=== PATIENT | female | born 1950 | race African-American/Black ===

== ENCOUNTER 2017-07-17 09:29 | Emergency (ER) | payer OTHER ==
[2017-07-17 09:38] VITALS: BMI 28.2
[2017-07-17] MEDS ORDERED: SODIUM CHLORIDE 1,000 ML IV STA ×2 (10:35→13:44)
[2017-07-17] MEDS ORDERED: KETOROLAC TROMETHAMINE 30 MG/1 ML VIAL IVPUSH ONE (10:35)
[2017-07-17] MEDS ORDERED: ONDANSETRON 4 MG/2 ML VIAL IVPUSH ONE (10:35)
[2017-07-17] MEDS ORDERED: PANTOPRAZOLE SODIUM 40 MG in SODIUM CHLORIDE 100 ML IVPB ONE (10:35)
--- NOTE | 2017-07-17 10:57 | PDOC ---
History of Present Illness - General Chief Complaint: Pain, Acute Stated Complaint: ABD PAIN (ULCER) Time Seen by Provider: 07/17/17 09:50 History Source: Patient Exam Limitations: No Limitations - History of Present Illness Travel History: No Initial Comments: 07/17/17 10:55 67-year-old female presents to the ED with complaints of nausea vomiting epigastric cramping associated with burning feeling to her belly button for the past few days worsening severity today causing her difficulty tolerating solids. Patient states history of gastric ulcers and stopped taking prevacid a few weeks ago. Patient states also continues to drink alcohol occasionally and smokes a pack of cigarettes daily. Patient states had endoscopy and colonoscopy a few years ago by Dr. Ernst but is otherwise followed by her primary care physician Dr. grajeda who prescribes her prevacid. Patient denies chest pain, shortness of breath, diarrhea, dysuria, edema, or rash. Timing/Duration: reports: getting worse Quality: reports: moderate, burning, cramping Abdominal Pain Onset Location: reports: epigastric Pain Radiation: reports: periumbilical Aggravating Factors: improves with: Eating Alleviating Factors: improves with: None Past History - Travel Traveled outside of the country in the last 30 days: No - Past Medical History Allergies/Adverse Reactions: Allergies Allergy/AdvReac Type Severity Reaction Status Date / Time No Known Allergies Allergy Verified 07/17/17 09:33 Home Medications: Ambulatory Orders Lansoprazole [Prevacid -] 30 mg PO DAILY 01/31/14 Calcium Carbonate/Vitamin D3 [Calcium 500-Vit D3 600 Tablet] 1 each PO DAILY 02/24 Cholecalciferol (Vitamin D3) [Vitamin D3] 5,000 unit PO DAILY 07/17/17 Hydrochlorothiazide [Hctz -] 12.5 mg PO DAILY 07/17/17 Lansoprazole [Prevacid -] 30 mg PO DAILY #30 cap.sr.24h 07/17/17 Nitrofurantoin Monohyd/M-Cryst [Macrobid -] 100 mg PO BID #14 capsule 07/17/17 Pnv No.122/Iron/Folic Acid [ Multi Tablet] 1 each PO DAILY 07/17/17 Vitamin B Complex [B Complex] 1 each PO DAILY 07/17/17 CVA: No COPD: No GI Disorders: Yes ("BLEEDING ULCER") - Immunization History Immunization Up to Date: Yes - Suicide/Smoking/Psychosocial Hx Smoking History: Current every day smoker Number of Cigarettes Smoked Daily: 20 Information on smoking cessation initiated: No Hx Alcohol Use: No Drug/Substance Use Hx: No Substance Use Type: Alcohol Patient Lives Alone: No Lives with/in: spouse/SO Review of Systems - Review of Systems Able to Perform ROS?: No Constitutional: Yes: Weakness HEENTM: No: Symptoms Reported Respiratory: No: Symptoms reported Cardiac (ROS): No: Symptoms Reported ABD/GI: Yes: Symptoms Reported, Nausea, Vomiting, Indigestion, Abdominal cramping : No: Symptoms Reported Musculoskeletal: No: Symptoms Reported Integumentary: No: Symptoms Reported Neurological: No: Symptoms reported Hematologic/Lymphatic: No: Symptoms Reported *Physical Exam - Vital Signs Last Vital Signs Temp Pulse Resp BP Pulse Ox 98.0 F 94 H 16 132/85 100 07/17/17 09:33 07/17/17 09:33 07/17/17 09:33 07/17/17 09:33 07/17/17 09:33 - Physical Exam General Appearance: Yes: Nourished, Appropriately Dressed. No: Apparent Distress HEENT: positive: Pharynx Normal (dry) Neck: positive: Supple Respiratory/Chest: positive: Lungs Clear, Normal Breath Sounds. negative: Respiratory Distress, Accessory Muscle Use Cardiovascular: positive: Regular Rhythm, Regular Rate. negative: Murmur Gastrointestinal/Abdominal: positive: Normal Bowel Sounds, Soft, Tenderness ( epigastric and upper periumbilical. LUQ tenderness) Extremity: positive: Normal Capillary Refill Integumentary: positive: Normal Color, Warm, Moist Neurologic: positive: Motor Strength 5/5 (ambulatory) Heart Score/ECG Review - ECG Intrepretation Rhythm: Regular Rhythm (rate 76. nsr with pac) ED Treatment Course - LABORATORY CBC & Chemistry Diagram: 07/17/17 11:07 07/17/17 11:07 - RADIOLOGY Radiology Studies Ordered: Category Date Time Status CHEST X-RAY PORTABLE* [RAD] Stat Radiology 07/17/17 10:38 Ordered Medical Decision Making - Medical Decision Making 07/17/17 12:08 Patient with history of gastric ulcer and GERD presents with nausea vomiting upper abdominal pain. Patient denies hemoptysis, hematemesis, fever, chills or shortness of breath. Patient on exam had epigastric and upper periumbilical along with left upper quadrant tenderness. Patient ordered for labs including lipase, urine, IV Protonix, Zofran Toradol IV fluids. Patient also ordered for cardiac profile, chest x-ray, and EKG. 07/17/17 13:31 Laboratory Tests 07/17/17 07/17/17 11:07 11:07 WBC 12.6 H RBC 5.91 H Hgb 14.8 Hct 46.4 H MCV 78.5 L Neutrophils % 70.1 Sodium 137 Potassium 4.1 Chloride 100 Carbon Dioxide 28 Anion Gap 9 BUN 14 Creatinine 1.0 D Creat Clearance w eGFR 55.64 Random Glucose 93 Calcium 10.3 H AST 20 ALT 30 Creatine Kinase 137 Troponin I < 0.02 Lipase 621 H Patient states feeling much better with no complaints of nausea vomiting or abdominal pain. Patient ordered for abdominal CT with contrast secondary to elevated lipase. Urinalysis awaiting collection. 07/17/17 13:43 Pt ordered for 2nd bag of IVF *DC/Admit/Observation/Transfer Diagnosis at time of Disposition: Elevated lipase, PUD (peptic ulcer disease) - Discharge Dispostion Disposition: HOME Condition at time of disposition: Improved - Prescriptions Prescriptions: Lansoprazole [Prevacid -] 30 mg PO DAILY #30 cap.sr.24h Nitrofurantoin Monohyd/M-Cryst [Macrobid -] 100 mg PO BID #14 capsule - Referrals Referrals: Rafael Ernst DO [Staff Physician] - Evie Grajeda [Primary Care Provider] - - Patient Instructions Printed Discharge Instructions: Lipase, DI for Pancreatitis, DI for Peptic Ulcer Additional Instructions: Activity as tolerated. Stay hydrated. Advance diet slowly as tolerated, initially with clear liquids for 24 hours then progressing slowly with LAST adding fatty foods. Restart Prevacid as prescribed. A urine test shows evidence of a urine infection: Take Macrobid as prescribed as antibiotic. Continue your medications as previously prescribed by your physician. You should follow up with Dr. Grajeda as soon as possible regarding today's emergency department visit. Also follow up with Dr. Ernst. Return to the emergency department for any new or concerning symptoms, particularly persistent or worsening pain, persistent vomiting or dehydration, bloody vomit or stool, fever/chills. - Post Discharge Activity Forms/Work/School Notes: Back to Work
[2017-07-17] MEDS ORDERED: ONDANSETRON 4 MG/2 ML VIAL ONE (11:00)
[2017-07-17] MEDS ORDERED: KETOROLAC TROMETHAMINE 30 MG/1 ML VIAL ONE (11:00)
[2017-07-17] MEDS ORDERED: PANTOPRAZOLE SODIUM 40 MG/100 ML BAG IVPB ONE (11:00)
[2017-07-17 11:25] LABS: BASOPHIL 0.8 % (0-2.0); EOSINOPHIL 0.2 % (0-4.5); MCH 25.1 pg (25.7-33.7); MCHC 31.9 g/dl (32.0-36.0); MEAN CELL VOLUME 78.5 fl (80-96); MEAN PLT VOLUME 9.2 fl (7.5-11.1); NEUTROPHILS 70.1 % (42.8-82.8); PLATELET COUNT 198 K/MM3 (134-434); WHITE BLOOD COUNT 12.6 K/mm3 (4.0-10.0)
[2017-07-17 11:52] LABS: ALBUMIN 3.8 g/dl (3.4-5.0); ANION GAP 9 (8-16); CALCIUM 10.3 mg/dL (8.5-10.1); CO2 28 mmol/L (21-32); GLUCOSE,RANDOM 93 mg/dL (74-106); SGOT/AST 20 U/L (15-37); SGPT/ALT 30 U/L (12-78)
[2017-07-17 11:56] LABS: ALK PHOS 114 U/L (45-117); BILIRUBIN,TOTAL 0.9 mg/dL (0.2-1.0); CPK 137 IU/L (26-192); TOT PROT 8.1 g/dl (6.4-8.2); TROPONIN I < 0.02 ng/ml (0.00-0.05)
[2017-07-17 14:01] LABS: URINE APPEARANCE SLCLOUDY; URINE BILIRUBIN NEGATIVE (NEGATIVE); URINE BLOOD 2+ (NEGATIVE); URINE COLOR YELLOW; URINE GLUCOSE (UA) NEGATIVE (NEGATIVE); URINE KETONE 1+ (NEGATIVE); URINE LEUK ESTERASE TRACE (NEGATIVE); URINE NITRITE NEGATIVE (NEGATIVE)
[2017-07-17 14:05] LABS: URINE PROTEIN 1+ (NEGATIVE)
[2017-07-17 14:09] LABS: URINE BACTERIA MANY /hpf (NONE SEEN); URINE HYALINE CAST 8 /lpf; URINE MUCUS FEW; URINE RBC 5 /hpf (0-3); URINE WBC 21 /hpf (3-5)
--- NOTE | 2017-07-17 15:10 | EKG ---
Test Reason : Blood Pressure : / mmHG Vent. Rate : 076 BPM Atrial Rate : 076 BPM P-R Int : 144 ms QRS Dur : 068 ms QT Int : 410 ms P-R-T Axes : 044 049 018 degrees QTc Int : 461 ms SINUS RHYTHM WITH PREMATURE ATRIAL COMPLEXES WITH ABERRANT CONDUCTION OTHERWISE NORMAL ECG WHEN COMPARED WITH ECG OF 31-JAN-2014 07:57, ABERRANT CONDUCTION IS NOW PRESENT Confirmed by SHEA BRAVO, COSTA ([id number]) on 07/17/2017 3:09:53 PM Referred By: Confirmed By:COSTA VALDIVIA MD
--- NOTE | 2017-07-17 18:15 | PDOC ---
*Physical Exam - Vital Signs Last Vital Signs Temp Pulse Resp BP Pulse Ox 98.0 F 94 H 16 132/85 100 07/17/17 09:33 07/17/17 09:33 07/17/17 09:33 07/17/17 09:33 07/17/17 09:33 - Physical Exam Comments: 07/17/17 18:10 Vital signs normal, heart rate 80 on my examination No jaundice or pallor Abdomen is soft/nontender/nondistended, no guarding or rebound. ED Treatment Course - LABORATORY CBC & Chemistry Diagram: 07/17/17 11:07 07/17/17 11:07 - ADDITIONAL ORDERS Additional order review: Laboratory Results 07/17/17 07/17/17 11:07 10:59 Sodium 137 Potassium 4.1 Chloride 100 Carbon Dioxide 28 Anion Gap 9 BUN 14 Creatinine 1.0 D Creat Clearance w eGFR 55.64 Random Glucose 93 Calcium 10.3 H Magnesium 2.0 Total Bilirubin 0.9 AST 20 ALT 30 Alkaline Phosphatase 114 Creatine Kinase 137 Troponin I < 0.02 Total Protein 8.1 Albumin 3.8 Lipase 621 H Urine Color Yellow Urine Appearance Slcloudy Urine pH 5.0 Ur Specific [place] 1.017 Urine Protein 1+ H Urine Glucose (UA) Negative Urine Ketones 1+ H Urine Blood 2+ H Urine Nitrite Negative Urine Bilirubin Negative Urine Urobilinogen 2.0 H Urine WBC (Auto) 21 Urine RBC (Auto) 5 Ur Epithelial Cells Rare Urine Bacteria Many Hyaline Casts 8 Urine Mucus Few 07/17/17 11:07 RBC 5.91 H MCV 78.5 L MCHC 31.9 L RDW 15.0 MPV 9.2 Neutrophils % 70.1 Lymphocytes % 20.0 Monocytes % 8.9 Eosinophils % 0.2 D Basophils % 0.8 - Medications Given in the ED: ED Medications Discontinued Medications Generic Name Dose Route Start Last Admin Trade Name Freq PRN Reason Stop Dose Admin Pantoprazole Sodium 40 mg/ 100 mls @ 200 mls/hr 07/17/17 10:35 07/17/17 11:02 Sodium Chloride IVPB 07/17/17 11:04 200 mls/hr ONCE ONE Administration Sodium Chloride 1,000 mls @ 1,000 mls/hr 07/17/17 10:35 07/17/17 11:02 Normal Saline - IV 07/17/17 11:34 1,000 mls/hr ASDIR STA Administration Sodium Chloride 1,000 mls @ 1,000 mls/hr 07/17/17 13:44 07/17/17 13:52 Normal Saline - IV 07/17/17 14:43 1,000 mls/hr ASDIR STA Administration Ketorolac Tromethamine 30 mg 07/17/17 10:35 07/17/17 11:02 Toradol Injection - IVPUSH 07/17/17 10:36 30 mg ONCE ONE Administration Ondansetron HCl 4 mg 07/17/17 10:35 07/17/17 11:02 Zofran Injection IVPUSH 07/17/17 10:36 4 mg ONCE ONE Administration Medical Decision Making - Medical Decision Making 07/17/17 18:11 Patient seen and evaluated with the nurse practitioner. I agree with the overall evaluation, assessment, and management with the following summary of visit: 67-year-old female with history of peptic ulcer disease recently noncompliant with PPI and diet presented with 2-3 days of worsening epigastric discomfort with nonbloody nausea/vomiting, exacerbated this morning so presented for evaluation. Last alcohol intake was 5 days ago, denies excessive NSAID use. Has been off her PPI for several weeks. Lab work noted elevated lipase over 600, white blood cell counts 12.6 with normal differential, no anemia but elevated white blood cells on UA. CAT scan to further evaluate the pancreatitis was within normal limits without evidence of gallstones or cyst or abscess. Patient markedly improved after IV fluids and medications, pain-free and tolerating by mouth with benign abdominal exam. Requesting discharge. Discussed with Dr. grajeda, who knows the patient well, who agrees with discharge plan on PPI and clear diet with prompt follow-up, will refer to Dr. Ernst who has seen the patient in the past. Patient understands strict return criteria. *DC/Admit/Observation/Transfer Diagnosis at time of Disposition: Elevated lipase, PUD (peptic ulcer disease) - Discharge Dispostion Disposition: HOME Condition at time of disposition: Improved - Prescriptions Prescriptions: Lansoprazole [Prevacid -] 30 mg PO DAILY #30 cap.sr.24h Nitrofurantoin Monohyd/M-Cryst [Macrobid -] 100 mg PO BID #14 capsule - Referrals Referrals: Evie Grajeda [Primary Care Provider] - Rafael Ernst DO [Staff Physician] - - Patient Instructions Printed Discharge Instructions: DI for Peptic Ulcer, Lipase, DI for Pancreatitis Additional Instructions: Activity as tolerated. Stay hydrated. Advance diet slowly as tolerated, initially with clear liquids for 24 hours then progressing slowly with LAST adding fatty foods. Restart Prevacid as prescribed. A urine test shows evidence of a urine infection: Take Macrobid as prescribed as antibiotic. Continue your medications as previously prescribed by your physician. You should follow up with Dr. Grajeda as soon as possible regarding today's emergency department visit. Also follow up with Dr. Ernst. Return to the emergency department for any new or concerning symptoms, particularly persistent or worsening pain, persistent vomiting or dehydration, bloody vomit or stool, fever/chills. - Post Discharge Activity
[2017-07-17 18:19] VITALS: BP 117/83; PULSE 84; TEMP 98.7
[2017-07-17 19:42] LABS: URINE LEUK ESTERASE Negative (NEGATIVE)
== END 2017-07-17 18:36 | disposition home or self-care (01) ==
LOC: JER 09:29
PROC: 3E0337Z Introduction of Electrolytic and Water Balance Substance into Peripheral Vein, Percutaneous Approach (ICD-10-PCS; principal; 2017-07-17)
PROC: 3E033GC Introduction of Other Therapeutic Substance into Peripheral Vein, Percutaneous Approach (ICD-10-PCS; 2017-07-17)
PROC: 3E033GC Introduction of Other Therapeutic Substance into Peripheral Vein, Percutaneous Approach (ICD-10-PCS; 2017-07-17)
PROC: 3E0333Z Introduction of Anti-inflammatory into Peripheral Vein, Percutaneous Approach (ICD-10-PCS; 2017-07-17)
DX: K27.9 Peptic ulcer, site unspecified, unspecified as acute or chronic, without hemorrhage or perforation (principal); R74.8 Abnormal levels of other serum enzymes
CPT/HCPCS: 36415; 71010-TC; 74177-TC; 80053; 81003; 81015; 82550; 83690; 83735; 84484; 85025; 93005; 93010; 99283-25

== ENCOUNTER 2022-02-26 09:14 | Inpatient (IN) | payer OTHER ==
[2022-02-26 09:28] VITALS: BMI 19.0
[2022-02-26] MEDS ORDERED: ACETAMINOPHEN 1000 MG/100 ML BAG IVPB ONE (10:53)
[2022-02-26] MEDS ORDERED: PANTOPRAZOLE SODIUM 40 MG VIAL IVPUSH ONE (11:11)
[2022-02-26] MEDS ORDERED: ACETAMINOPHEN INJECTION 100 ML IVPB ONE (11:49)
[2022-02-26] MEDS ORDERED: PANTOPRAZOLE SODIUM 80 MG/200 ML BAG IVPB ONE (11:50)
[2022-02-26 12:53] LABS: BASO % 0.9 % (0-2.0); EOS % 0.1 % (0-4.5); HEMATOCRIT 47.9 % (32.4-45.2); HEMOGLOBIN 15.5 GM/dL (10.7-15.3); LYMPH % 15.3 % (8-40); MCH 24.9 pg (25.7-33.7); MCHC 32.3 g/dl (32.0-36.0); MONO % 6.4 % (3.8-10.2); NEUT % 77.3 % (42.8-82.8); PLATELET COUNT 258 10^3/uL (134-434); RBC 6.23 M/mm3 (3.60-5.2); WHITE BLOOD COUNT 11.6 K/mm3 (4.0-10.0)
[2022-02-26 13:00] LABS: INR 1.06 (0.83-1.09); PROTHROMBIN TIME (PATIENT) 12.2 SEC (9.7-13.0)
[2022-02-26 13:03] LABS: ACTIVATED PTT 32.5 SECONDS (25.2-36.5)
[2022-02-26 13:12] LABS: LACTIC ACID 3.8 mmol/L (0.4-2.0)
[2022-02-26] MEDS ORDERED: LACTATED RINGERS SOLUTION 1000 ML INFUS.BAG IV ONE (13:13)
[2022-02-26 13:30] LABS: CHLORIDE 93 mmol/L (98-107); SODIUM 137 mmol/L (136-145)
[2022-02-26 13:32] LABS: ANION GAP 13 MMOL/L (8-16); BLOOD UREA NITROGEN 20.8 mg/dL (7-18); CALCIUM 11.6 mg/dL (8.5-10.1); CO2 31 mmol/L (21-32); GLUCOSE,RANDOM 116 mg/dL (74-106); LIPASE 338 U/L (73-393); MAGNESIUM 2.2 mg/dL (1.8-2.4)
[2022-02-26 13:33] LABS: ALBUMIN 4.1 g/dl (3.4-5.0)
[2022-02-26 13:35] LABS: CREATININE 1.4 mg/dL (0.55-1.3); SGOT/AST 28 U/L (15-37)
[2022-02-26 13:37] LABS: BILIRUBIN,TOTAL 0.9 mg/dL (0.2-1); TOT PROT 8.4 g/dl (6.4-8.2)
[2022-02-26 13:38] LABS: ALK PHOS 102 U/L (45-117)
[2022-02-26 13:41] LABS: SGPT/ALT 23 U/L (13-61)
[2022-02-26 16:01] LABS: URINE APPEARANCE CLEAR; URINE COLOR YELLOW; URINE GLUCOSE (UA) NEGATIVE (NEGATIVE)
[2022-02-26 16:02] LABS: URINE BILIRUBIN NEGATIVE (NEGATIVE); URINE KETONE 2+ (NEGATIVE); URINE NITRITE NEGATIVE (NEGATIVE); URINE PROTEIN 2+ (NEGATIVE)
[2022-02-26 16:03] LABS: EPI CELLS 20 /uL (0-25.1); HYALINE CASTS 3 /uL (0-3.1); URINE BACTERIA 100 /uL (0-1359); URINE LEUK ESTERASE NEGATIVE (NEGATIVE); URINE RBC 84 /uL (0-23.9); URINE WBC 13 /uL (0-25.8)
[2022-02-26] MEDS ORDERED: morphine CARPU-JECT 4 MG/1 ML DISP.SYRIN IVPUSH ONE (16:34)
[2022-02-26] MEDS ORDERED: MAG HYDROX/AL HYDROX/SIMETH 30 ML UNIT-DOSE CUP PO PRN (18:56)
[2022-02-26] MEDS ORDERED: ACETAMINOPHEN 1000 MG/100 ML BAG IVPB PRN (18:56)
[2022-02-26] MEDS ORDERED: CEFTRIAXONE 1 GM in DEXTROSE 5%-WATER - 50 ML IVPB ONE (19:01)
[2022-02-26] MEDS ORDERED: FAMOTIDINE 20 MG/50 ML IVPB 20 MG/50 ML MG IVPB SCH (20:00)
[2022-02-26] MEDS: SODIUM CHLORIDE 1,000 ML IV SCH (22:17)
[2022-02-27] MEDS ORDERED: amLODIPine BESYLATE 5 MG TABLET (FP) PO ONE (01:17)
[2022-02-27] MEDS ORDERED: amLODIPine BESYLATE 5 MG TABLET (FP) ONE (02:09)
[2022-02-27] MEDS ORDERED: HEPARIN NA (PORCINE) 5,000 UNITS/ML 1ML VIAL ONE ×2 (05:59→18:14)
[2022-02-27] MEDS: HEPARIN NA (PORCINE) 5,000 UNITS/ML 1ML VIAL SQ SCH ×3 (06:14→22:20)
[2022-02-27] MEDS ORDERED: LABETALOL HCL 5 MG/1 ML (100MG/20 ML VIAL) IVPUSH ONE (06:57)
[2022-02-27 07:19] LABS: BLOOD UREA NITROGEN 18.5 mg/dL (7-18); MAGNESIUM 2.1 mg/dL (1.8-2.4)
[2022-02-27 07:22] LABS: CREATININE 1.1 mg/dL (0.55-1.3)
[2022-02-27 07:24] LABS: BILIRUBIN,TOTAL 0.6 mg/dL (0.2-1)
[2022-02-27 07:38] LABS: CALCIUM 9.8 mg/dL (8.5-10.1); TOT PROT 6.2 g/dl (6.4-8.2)
[2022-02-27 07:44] LABS: BASO % 1.1 % (0-2.0); EOS % 0.9 % (0-4.5); HEMATOCRIT 36.6 % (32.4-45.2); HEMOGLOBIN 12.1 GM/dL (10.7-15.3); LYMPH % 30.9 % (8-40); MCH 25.4 pg (25.7-33.7); MEAN CELL VOLUME 77.1 fl (80-96); MEAN PLT VOLUME 10.8 fl (7.5-11.1); MONO % 6.6 % (3.8-10.2); NEUT % 60.5 % (42.8-82.8); PLATELET COUNT 149 10^3/uL (134-434); RBC 4.75 M/mm3 (3.60-5.2); RDW 14.4 % (11.6-15.6); WHITE BLOOD COUNT 9.1 K/mm3 (4.0-10.0)
[2022-02-27] MEDS ORDERED: FAMOTIDINE 20 MG/50 ML IVPB 20 MG/50 ML MG IVPB SCH (10:00)
[2022-02-27] MEDS ORDERED: FAMOTIDINE 20 MG/50 ML IVPB 20 MG/50 ML MG IVPB ONE (11:31)
[2022-02-27] MEDS ORDERED: PIPERACILLIN/TAZOB 3.375 GM 3.375 GM in DEXTROSE 5%-WATER - 50 ML IVPB SCH (18:00)
[2022-02-27] MEDS: SODIUM CHLORIDE 1,000 ML IV SCH (22:27)
[2022-02-28] MEDS: HEPARIN NA (PORCINE) 5,000 UNITS/ML 1ML VIAL SQ SCH ×3 (06:55→22:37)
[2022-02-28 07:04] LABS: BASO % 0.7 % (0-2.0); EOS % 3.8 % (0-4.5); HEMATOCRIT 34.3 % (32.4-45.2); LYMPH % 46.8 % (8-40); MCH 25.2 pg (25.7-33.7); MCHC 32.1 g/dl (32.0-36.0); MEAN CELL VOLUME 78.4 fl (80-96); MEAN PLT VOLUME 9.8 fl (7.5-11.1); MONO % 9.5 % (3.8-10.2); NEUT % 39.2 % (42.8-82.8); PLATELET COUNT 148 10^3/uL (134-434); RBC 4.37 M/mm3 (3.60-5.2); WHITE BLOOD COUNT 6.7 K/mm3 (4.0-10.0)
[2022-02-28 07:37] LABS: CALCIUM 9.2 mg/dL (8.5-10.1)
[2022-02-28 07:38] LABS: BLOOD UREA NITROGEN 12.3 mg/dL (7-18); MAGNESIUM 2.3 mg/dL (1.8-2.4)
[2022-02-28 07:40] LABS: PHOSPHOROUS 3.2 mg/dL (2.5-4.9)
[2022-02-28] MEDS: PANTOPRAZOLE 20 MG TABLET PO SCH (09:48)
[2022-02-28] MEDS: LISINOPRIL 5 MG TABLET PO SCH (09:48)
[2022-02-28] MEDS ORDERED: BISACODYL 5 MG TABLET.DR (FP) PO ONE (16:00)
[2022-02-28] MEDS ORDERED: PEG 3350/NA SULF BICARB CL/KCL 4000 ML SOLN.RECON PO ONE (17:00)
[2022-02-28] MEDS ORDERED: PIPERACILLIN/TAZOB 3.375 GM 3.375 GM in DEXTROSE 5%-WATER - 50 ML IVPB SCH (18:00)
[2022-02-28 18:07] LABS: FREE KAPPA,SERUM 30.1 mg/L (3.3-19.4)
[2022-02-28] MEDS: SODIUM CHLORIDE 1,000 ML IV SCH (18:44)
[2022-03-01 08:20] LABS: BASO % 0.7 % (0-2.0); EOS % 4.5 % (0-4.5); HEMOGLOBIN 11.9 GM/dL (10.7-15.3); LYMPH % 36.1 % (8-40); MCH 25.2 pg (25.7-33.7); MEAN CELL VOLUME 78.7 fl (80-96); MONO % 9.2 % (3.8-10.2); NEUT % 49.5 % (42.8-82.8); PLATELET COUNT 158 10^3/uL (134-434); RBC 4.71 M/mm3 (3.60-5.2); WHITE BLOOD COUNT 7.3 K/mm3 (4.0-10.0)
[2022-03-01 08:38] LABS: BLOOD UREA NITROGEN 7.2 mg/dL (7-18)
[2022-03-01 08:39] LABS: MAGNESIUM 2.2 mg/dL (1.8-2.4)
[2022-03-01 08:41] LABS: PHOSPHOROUS 2.5 mg/dL (2.5-4.9)
[2022-03-01] MEDS: LISINOPRIL 5 MG TABLET PO SCH (09:22)
[2022-03-01] MEDS: PANTOPRAZOLE 20 MG TABLET PO SCH (09:22)
[2022-03-01] MEDS ORDERED: EPINEPHrine 1:10,000 (P-F SYR) 1 MG/10 ML DISP.SYRIN IM ONE (10:57)
[2022-03-01] MEDS ORDERED: PANTOPRAZOLE 40 MG TABLET PO SCH (12:45)
[2022-03-01] MEDS ORDERED: EPINEPHrine 1:10,000 (P-F SYR) 1 MG/10 ML DISP.SYRIN ONE (13:44)
[2022-03-01 15:08] LABS: FREE KAP CHN UR 97.69 mg/L (1.17-86.46); KAPPA LAMBDA RATIO URIN 4.8 (1.83-14.26); KAPPA/LAMBDA RATIO, UR 11.33 (1.83-14.26)
[2022-03-01 15:18] VITALS: BP 143/78; PULSE 79; RESP 18; TEMP 98.6
[2022-03-01 15:22] LABS: INR 1.1 (0.83-1.09); PROTHROMBIN TIME (PATIENT) 12.7 SEC (9.7-13.0)
[2022-03-01 15:25] LABS: ACTIVATED PTT 32.9 SECONDS (25.2-36.5)
[2022-03-04 15:08] LABS: TOTAL PROTEIN, URINE 109.3 mg/dL (Not Estab.)
== END 2022-03-01 19:44 | disposition home or self-care (01) | DRG 392 ==
LOC: JER 09:14 → INTOOBSV 16:24 → JERBED 16:24 → OBSVTOIN 02-27 10:01 → J4W 02-27 18:24
PROVIDERS: ADMIT Internal Medicine; ATTEND Internal Medicine
PROC: 0DB68ZX Excision of Stomach, Via Natural or Artificial Opening Endoscopic, Diagnostic (ICD-10-PCS; 2022-03-01)
PROC: 3E0G8GC Introduction of Other Therapeutic Substance into Upper GI, Via Natural or Artificial Opening Endoscopic (ICD-10-PCS; 2022-03-01)
PROC: 0DBK8ZX Excision of Ascending Colon, Via Natural or Artificial Opening Endoscopic, Diagnostic (ICD-10-PCS; 2022-03-01)
PROC: 0DBB8ZX Excision of Ileum, Via Natural or Artificial Opening Endoscopic, Diagnostic (ICD-10-PCS; 2022-03-01)
PROC: 0DB98ZX Excision of Duodenum, Via Natural or Artificial Opening Endoscopic, Diagnostic (ICD-10-PCS; principal; 2022-03-01 14:00)
DX: K29.60 Other gastritis without bleeding (principal); Z68.1 Body mass index [BMI] 19.9 or less, adult; N17.9 Acute kidney failure, unspecified; I24.8 Other forms of acute ischemic heart disease; K57.30 Diverticulosis of large intestine without perforation or abscess without bleeding; E83.52 Hypercalcemia; R00.0 Tachycardia, unspecified; R63.4 Abnormal weight loss; R11.2 Nausea with vomiting, unspecified; E86.0 Dehydration; I10 Essential (primary) hypertension; K21.9 Gastro-esophageal reflux disease without esophagitis; D64.9 Anemia, unspecified; D72.829 Elevated white blood cell count, unspecified; K63.5 Polyp of colon; D12.0 Benign neoplasm of cecum; D12.2 Benign neoplasm of ascending colon; K26.9 Duodenal ulcer, unspecified as acute or chronic, without hemorrhage or perforation; Z87.11 Personal history of peptic ulcer disease
CPT/HCPCS: 36415; 71045-TC-FY; 74177-TC; 76705-TC; 80048; 80053; 81003; 82272; 82378; 82570; 82728; 83540; 83550; 83605; 83690; 83735; 83883; 83970; 84100; 84155; 84156; 84157; 84165; 84443; 84484; 85025; 85027; 85045; 85610; 85730; 86850; 86900; 86901; 87040; 87077; 87086; 88305-TC; 93005; 93010; 93306-TC; 97116-GP; 97162-GP; 99285-25; C9803-CS; G0378; J1644; Q9967; U0003; U0005

== ENCOUNTER 2023-03-05 13:55 | Observation (INO) | payer OTHER ==
[2023-03-05] MEDS ORDERED: ONDANSETRON 4 MG/2 ML VIAL IVPUSH ONE ×2 (15:11→18:57)
[2023-03-05] MEDS ORDERED: SODIUM CHLORIDE 0.9% 500 ML INFUS.BAG IV ONE (15:11)
[2023-03-05] MEDS ORDERED: ACETAMINOPHEN 1000 MG/100 ML BAG IVPB ONE (15:11)
[2023-03-05] MEDS ORDERED: ACETAMINOPHEN INJECTION 100 ML IVPB ONE (15:19)
[2023-03-05] MEDS ORDERED: ONDANSETRON 4 MG/2 ML VIAL ONE (15:19)
[2023-03-05 17:22] LABS: BASO % 0.5 % (0-2.0); EOS % 1.6 % (0-4.5); HEMOGLOBIN 11.4 GM/dL (10.7-15.3); LYMPH % 12.6 % (8-40); MCH 27.5 pg (25.7-33.7); MCHC 33.5 g/dl (32.0-36.0); MEAN CELL VOLUME 82.1 fl (80-96); MEAN PLT VOLUME 8.5 fl (7.5-11.1); MONO % 6.3 % (3.8-10.2); PLATELET COUNT 423 10^3/uL (134-434); RBC 4.15 M/mm3 (3.60-5.2); RDW 21.8 % (11.6-15.6); WHITE BLOOD COUNT 12.5 K/mm3 (4.0-10.0)
[2023-03-05 17:30] LABS: INR 1.25 (0.83-1.09); PROTHROMBIN TIME (PATIENT) 14.5 SEC (9.7-13.0)
[2023-03-05 17:39] LABS: ACTIVATED PTT 33.3 SECONDS (25.2-36.5)
[2023-03-05 17:42] LABS: POTASSIUM 3.1 mmol/L (3.5-5.1)
[2023-03-05 17:43] LABS: ALBUMIN 2.9 g/dl (3.4-5.0); BLOOD UREA NITROGEN 11.5 mg/dL (7-18); CALCIUM 10.8 mg/dL (8.5-10.1)
[2023-03-05 17:44] LABS: MAGNESIUM 2.1 mg/dL (1.8-2.4)
[2023-03-05 17:47] LABS: CREATININE 1.2 mg/dL (0.55-1.3)
[2023-03-05 17:49] LABS: BILIRUBIN,TOTAL 0.3 mg/dL (0.2-1); TOT PROT 8.1 g/dl (6.4-8.2)
[2023-03-05 18:13] LABS: ANISOCYTOSIS 2+; MACROCYTOSIS 0; TARGET CELLS 1+
[2023-03-05] MEDS ORDERED: POTASSIUM CHLORIDE ORAL LIQUID 20 MEQ/15 ML PO ONE (18:15)
[2023-03-05] MEDS ORDERED: POTASSIUM CHLORIDE ORAL LIQUID 20 MEQ/15 ML ONE (18:42)
[2023-03-05] MEDS ORDERED: FAMOTIDINE 20 MG/50 ML IVPB 20 MG/50 ML MG IVPB ONE ×2 (21:37→21:44)
[2023-03-05] MEDS ORDERED: KCL 10 MEQ IVPB 10 MEQ/100 ML INFUS.BAG IVPB SCH (21:45)
[2023-03-05] MEDS ORDERED: ONDANSETRON 4 MG/2 ML VIAL IVPUSH PRN (22:00)
[2023-03-05] MEDS ORDERED: ACETAMINOPHEN 325 MG TABLET (FP) PO PRN (22:00)
[2023-03-05] MEDS ORDERED: KCL 10 MEQ IVPB 10 MEQ/100 ML INFUS.BAG IVPB ONE (22:02)
[2023-03-05] MEDS ORDERED: MAG HYDROX/AL HYDROX/SIMETH 30 ML UNIT-DOSE CUP PO PRN (22:04)
[2023-03-05] MEDS ORDERED: ACETAMINOPHEN 1000 MG/100 ML BAG IVPB PRN (22:05)
[2023-03-05 22:17] LABS: URINE APPEARANCE CLEAR; URINE BILIRUBIN NEGATIVE (NEGATIVE); URINE COLOR YELLOW; URINE GLUCOSE (UA) NEGATIVE (NEGATIVE); URINE KETONE 15 mg/dl (NEGATIVE)
[2023-03-05 22:18] LABS: EPI CELLS 178.3 /uL (0-25.1); HYALINE CASTS 3.36 /uL (0-3.1); PH,URINE 7.5 (5.0-8.0); URINE LEUK ESTERASE NEGATIVE (NEGATIVE); URINE NITRITE NEGATIVE (NEGATIVE); URINE PROTEIN 30 (NEGATIVE); URINE RBC 58.7 /uL (0-23.9); URINE UROBILINOGEN 0.2 mg/dL (0.2-1.0); YEAST OCCASIONAL (NEGATIVE)
[2023-03-05 23:48] VITALS: BMI 18.6
[2023-03-06 07:05] LABS: BASO % 0.8 % (0-2.0); EOS % 3.6 % (0-4.5); HEMATOCRIT 30.8 % (32.4-45.2); HEMOGLOBIN 9.8 GM/dL (10.7-15.3); LYMPH % 14.6 % (8-40); MCH 26.7 pg (25.7-33.7); MEAN CELL VOLUME 83.7 fl (80-96); MEAN PLT VOLUME 9.1 fl (7.5-11.1); MONO % 7.1 % (3.8-10.2); NEUT % 73.9 % (42.8-82.8); PLATELET COUNT 365 10^3/uL (134-434); RBC 3.67 M/mm3 (3.60-5.2); RDW 21.2 % (11.6-15.6); WHITE BLOOD COUNT 11.7 K/mm3 (4.0-10.0)
[2023-03-06 07:24] LABS: POTASSIUM 4.3 mmol/L (3.5-5.1)
[2023-03-06 07:30] LABS: BLOOD UREA NITROGEN 8.2 mg/dL (7-18)
[2023-03-06 07:33] LABS: CREATININE 0.9 mg/dL (0.55-1.3)
[2023-03-06 07:35] LABS: CALCIUM 9.7 mg/dL (8.5-10.1)
[2023-03-06] MEDS ORDERED: PANTOPRAZOLE 40 MG TABLET PO SCH (10:00)
[2023-03-06] MEDS ORDERED: LISINOPRIL 10 MG TABLET PO SCH (10:00)
[2023-03-06] MEDS ORDERED: amLODIPine BESYLATE 5 MG TABLET (FP) PO SCH (10:00)
[2023-03-06] MEDS ORDERED: REGADENOSON 0.4 MG/5 ML PRE-FILLED SYRINGE IVPUSH ONE ×2 (13:04→13:15)
[2023-03-06 18:46] VITALS: BP 141/63; PULSE 86; RESP 18; TEMP 98.2
[2023-03-06] MEDS ORDERED: ACETAMINOPHEN 325 MG TABLET (FP) PO PRN (22:00)
[2023-03-06] MEDS ORDERED: ATORVASTATIN CA 40 MG TABLET (FP) PO SCH (22:00)
== END 2023-03-06 19:11 | disposition home or self-care (01) ==
LOC: JER 13:55 → JERBED 21:39 → J4W 23:10
PROVIDERS: ADMIT Internal Medicine; ATTEND Internal Medicine
PROC: 3E033NZ Introduction of Analgesics, Hypnotics, Sedatives into Peripheral Vein, Percutaneous Approach (ICD-10-PCS; principal; 2023-03-05)
PROC: 3E033GC Introduction of Other Therapeutic Substance into Peripheral Vein, Percutaneous Approach (ICD-10-PCS; 2023-03-05)
PROC: 3E0337Z Introduction of Electrolytic and Water Balance Substance into Peripheral Vein, Percutaneous Approach (ICD-10-PCS; 2023-03-05)
DX: R07.89 Other chest pain (principal); K29.00 Acute gastritis without bleeding; K27.9 Peptic ulcer, site unspecified, unspecified as acute or chronic, without hemorrhage or perforation; K29.70 Gastritis, unspecified, without bleeding; I10 Essential (primary) hypertension; E78.5 Hyperlipidemia, unspecified; Z87.891 Personal history of nicotine dependence; R10.9 Unspecified abdominal pain; Z90.49 Acquired absence of other specified parts of digestive tract
CPT/HCPCS: 0241U-QW; 36415; 71045-TC-FY; 71275-TC; 78452-TC; 80048; 80053; 81003; 83690; 83735; 84443; 84484; 85025; 85610; 85730; 86850; 86900; 86901; 87077; 87086; 87186; 93005; 93010; 93017; 93306-TC; 96365; 96367; 96375; 96376; 99285-25; A9502; G0378; J2785; Q9967

== ENCOUNTER 2023-03-09 23:03 | Observation (INO) | payer OTHER ==
[2023-03-09 23:12] VITALS: BMI 18.1
[2023-03-09] MEDS ORDERED: LACTATED RINGERS SOLUTION 1000 ML INFUS.BAG IV ONE ×2 (23:18→23:41)
[2023-03-09 23:48] LABS: BASO % 0.8 % (0-2.0); EOS % 1.9 % (0-4.5); HEMATOCRIT 33.5 % (32.4-45.2); HEMOGLOBIN 11.2 GM/dL (10.7-15.3); LYMPH % 12.9 % (8-40); MCH 27.3 pg (25.7-33.7); MCHC 33.5 g/dl (32.0-36.0); MEAN CELL VOLUME 81.4 fl (80-96); MEAN PLT VOLUME 8.8 fl (7.5-11.1); MONO % 5.5 % (3.8-10.2); NEUT % 78.9 % (42.8-82.8); PLATELET COUNT 507 10^3/uL (134-434); RBC 4.12 M/mm3 (3.60-5.2); RDW 20.9 % (11.6-15.6); WHITE BLOOD COUNT 17.3 K/mm3 (4.0-10.0)
[2023-03-09 23:58] LABS: INR 1.29 (0.83-1.09); PROTHROMBIN TIME (PATIENT) 14.9 SEC (9.7-13.0)
[2023-03-10] LABS: ACTIVATED PTT 32.5 SECONDS (25.2-36.5)
[2023-03-10 00:09] LABS: POTASSIUM 3.6 mmol/L (3.5-5.1)
[2023-03-10 00:11] LABS: CALCIUM 11.1 mg/dL (8.5-10.1)
[2023-03-10 00:12] LABS: ALBUMIN 2.8 g/dl (3.4-5.0); BLOOD UREA NITROGEN 16.5 mg/dL (7-18); MAGNESIUM 2.3 mg/dL (1.8-2.4)
[2023-03-10 00:15] LABS: CREATININE 2.9 mg/dL (0.55-1.3)
[2023-03-10 00:16] LABS: TOT PROT 7.6 g/dl (6.4-8.2)
[2023-03-10 00:17] LABS: BILIRUBIN,TOTAL 0.2 mg/dL (0.2-1)
[2023-03-10] MEDS ORDERED: LIDOCAINE HCL 2% JELLY 6 ML TP ONE (01:01)
[2023-03-10 01:56] LABS: EPI CELLS >36 /uL (0-25.1); HYALINE CASTS 13 /uL (0-3.1); URINE APPEARANCE CLOUDY; URINE BACTERIA 34 /uL (0-1359); URINE BILIRUBIN NEGATIVE (NEGATIVE); URINE COLOR YELLOW; URINE GLUCOSE (UA) NEGATIVE (NEGATIVE); URINE KETONE TRACE (NEGATIVE); URINE LEUK ESTERASE TRACE (NEGATIVE); URINE NITRITE NEGATIVE (NEGATIVE); URINE PROTEIN 2+ (NEGATIVE); URINE UROBILINOGEN 0.2 mg/dL (0.2-1.0); URINE WBC 90 /uL (0-25.8)
[2023-03-10] MEDS ORDERED: LACTATED RINGERS SOLUTION 1,000 ML IV SCH (08:30)
[2023-03-10] MEDS ORDERED: PANTOPRAZOLE SODIUM 40 MG VIAL IVPUSH SCH (10:00)
[2023-03-10] MEDS: LACTATED RINGERS SOLUTION 1,000 ML IV SCH ×2 (10:33→18:01)
[2023-03-10] MEDS ORDERED: ONDANSETRON 4 MG/2 ML VIAL IVPUSH PRN (11:22)
[2023-03-10 12:04] LABS: URINE RBC 33.1 /uL (0-23.9)
[2023-03-10 12:15] LABS: BASO % 0.8 % (0-2.0); EOS % 3.9 % (0-4.5); HEMATOCRIT 29.1 % (32.4-45.2); HEMOGLOBIN 9.8 GM/dL (10.7-15.3); LYMPH % 16.5 % (8-40); MCH 27.3 pg (25.7-33.7); MCHC 33.6 g/dl (32.0-36.0); MEAN CELL VOLUME 81.4 fl (80-96); MONO % 6.6 % (3.8-10.2); NEUT % 72.2 % (42.8-82.8); PLATELET COUNT 365 10^3/uL (134-434); RBC 3.58 M/mm3 (3.60-5.2); RDW 20.8 % (11.6-15.6)
[2023-03-10 12:45] LABS: POTASSIUM 3.8 mmol/L (3.5-5.1)
[2023-03-10 12:49] LABS: CALCIUM 9.9 mg/dL (8.5-10.1)
[2023-03-10 12:50] LABS: BLOOD UREA NITROGEN 13.7 mg/dL (7-18)
[2023-03-10 12:52] LABS: PHOSPHOROUS 2.3 mg/dL (2.5-4.9)
[2023-03-10 12:53] LABS: CREATININE 1.6 mg/dL (0.55-1.3)
[2023-03-10 12:54] LABS: BILIRUBIN,TOTAL 0.4 mg/dL (0.2-1); TOT PROT 5.8 g/dl (6.4-8.2)
[2023-03-10 12:57] LABS: ALBUMIN 2.2 g/dl (3.4-5.0)
[2023-03-10] MEDS ORDERED: HEPARIN NA (PORCINE) 5,000 UNITS/ML 1ML VIAL SQ SCH (22:00)
[2023-03-11] MEDS ORDERED: LACTATED RINGERS SOLUTION 1,000 ML IV SCH ×2 (07:26→09:49)
[2023-03-11 09:00] LABS: BASO % 1.3 % (0-2.0); EOS % 8.8 % (0-4.5); HEMATOCRIT 27.3 % (32.4-45.2); HEMOGLOBIN 9.2 GM/dL (10.7-15.3); LYMPH % 22.9 % (8-40); MCH 27.8 pg (25.7-33.7); MCHC 33.6 g/dl (32.0-36.0); MEAN CELL VOLUME 82.8 fl (80-96); MEAN PLT VOLUME 9.9 fl (7.5-11.1); MONO % 7.5 % (3.8-10.2); NEUT % 59.5 % (42.8-82.8); PLATELET COUNT 320 10^3/uL (134-434); RBC 3.29 M/mm3 (3.60-5.2); RDW 20.2 % (11.6-15.6); WHITE BLOOD COUNT 8.6 K/mm3 (4.0-10.0)
[2023-03-11 09:15] LABS: POTASSIUM 3.7 mmol/L (3.5-5.1)
[2023-03-11 09:20] LABS: ALBUMIN 2.1 g/dl (3.4-5.0); BLOOD UREA NITROGEN 10.6 mg/dL (7-18); CALCIUM 9.3 mg/dL (8.5-10.1); MAGNESIUM 1.8 mg/dL (1.8-2.4)
[2023-03-11 09:23] LABS: PHOSPHOROUS 2.1 mg/dL (2.5-4.9)
[2023-03-11 09:25] LABS: BILIRUBIN,TOTAL 0.3 mg/dL (0.2-1); TOT PROT 5.7 g/dl (6.4-8.2)
[2023-03-11] MEDS: LACTATED RINGERS SOLUTION 1,000 ML IV SCH (10:00)
[2023-03-11] MEDS: PANTOPRAZOLE SODIUM 40 MG VIAL IVPUSH SCH ×2 (10:02→21:39)
[2023-03-11] MEDS ORDERED: SODIUM PHOSPHATE - 30 MM in SODIUM CHLORIDE 500 ML IVPB ONE (11:00)
[2023-03-12] MEDS: LACTATED RINGERS SOLUTION 1,000 ML IV SCH (03:42)
[2023-03-12] MEDS: PANTOPRAZOLE SODIUM 40 MG VIAL IVPUSH SCH ×2 (09:25→21:12)
[2023-03-12 11:18] LABS: HEMOGLOBIN 9.2 GM/dL (10.7-15.3); MCH 27.2 pg (25.7-33.7); MCHC 32.8 g/dl (32.0-36.0); MEAN PLT VOLUME 9.4 fl (7.5-11.1); PLATELET COUNT 314 10^3/uL (134-434); RBC 3.38 M/mm3 (3.60-5.2); RDW 20.5 % (11.6-15.6); WHITE BLOOD COUNT 9.8 K/mm3 (4.0-10.0)
[2023-03-12 11:45] LABS: POTASSIUM 3.8 mmol/L (3.5-5.1)
[2023-03-12 12:16] LABS: MAGNESIUM 1.5 mg/dL (1.8-2.4)
[2023-03-12 12:17] LABS: CALCIUM 9.3 mg/dL (8.5-10.1)
[2023-03-12 12:18] LABS: BLOOD UREA NITROGEN 5.8 mg/dL (7-18)
[2023-03-12 12:20] LABS: PHOSPHOROUS 2.4 mg/dL (2.5-4.9)
[2023-03-12] MEDS ORDERED: MAGNESIUM 2GM/50ML STERILE WATER IVPB IVPB ONE (13:00)
[2023-03-12] MEDS ORDERED: SODIUM PHOSPHATE - 15 MM in SODIUM CHLORIDE 250 ML IVPB ONE (14:00)
[2023-03-13 00:55] LABS: EPI CELLS 16 /uL (0-25.1); HYALINE CASTS 0 /uL (0-3.1); URINE APPEARANCE CLEAR; URINE BACTERIA >9,000 /uL (0-1359); URINE BILIRUBIN NEGATIVE (NEGATIVE); URINE COLOR YELLOW; URINE GLUCOSE (UA) NEGATIVE (NEGATIVE); URINE KETONE NEGATIVE (NEGATIVE); URINE LEUK ESTERASE 2+ (NEGATIVE); URINE NITRITE POSITIVE (NEGATIVE); URINE PROTEIN NEGATIVE (NEGATIVE); URINE RBC 10 /uL (0-23.9); URINE UROBILINOGEN 0.2 mg/dL (0.2-1.0); URINE WBC 275 /uL (0-25.8)
[2023-03-13] MEDS: PANTOPRAZOLE SODIUM 40 MG VIAL IVPUSH SCH (09:37)
[2023-03-13] MEDS ORDERED: PANTOPRAZOLE SODIUM 40 MG VIAL IVPUSH SCH (10:00)
[2023-03-13 10:55] LABS: HEMATOCRIT 29.6 % (32.4-45.2); HEMOGLOBIN 9.3 GM/dL (10.7-15.3); MCH 26.7 pg (25.7-33.7); MCHC 31.5 g/dl (32.0-36.0); MEAN CELL VOLUME 84.8 fl (80-96); MEAN PLT VOLUME 9.4 fl (7.5-11.1); PLATELET COUNT 294 10^3/uL (134-434); RBC 3.49 M/mm3 (3.60-5.2); WHITE BLOOD COUNT 9.3 K/mm3 (4.0-10.0)
[2023-03-13 11:11] VITALS: RESP 16
[2023-03-13 11:16] LABS: POTASSIUM 4.1 mmol/L (3.5-5.1)
[2023-03-13 11:18] LABS: BLOOD UREA NITROGEN 5.8 mg/dL (7-18); CALCIUM 9.9 mg/dL (8.5-10.1); MAGNESIUM 2.1 mg/dL (1.8-2.4)
[2023-03-13 11:22] LABS: PHOSPHOROUS 2.6 mg/dL (2.5-4.9)
[2023-03-13 13:45] VITALS: BP 157/66; PULSE 89; TEMP 98.1
== END 2023-03-13 13:50 | disposition home or self-care (01) ==
LOC: JER 23:03 → JERBED 03-10 05:42 → J5S 03-10 22:49
PROVIDERS: ADMIT Internal Medicine
PROC: 3E023GC Introduction of Other Therapeutic Substance into Muscle, Percutaneous Approach (ICD-10-PCS; principal; 2023-03-10)
PROC: 3E0337Z Introduction of Electrolytic and Water Balance Substance into Peripheral Vein, Percutaneous Approach (ICD-10-PCS; 2023-03-10)
PROC: 3E033GC Introduction of Other Therapeutic Substance into Peripheral Vein, Percutaneous Approach (ICD-10-PCS; 2023-03-10)
DX: N17.9 Acute kidney failure, unspecified (principal); K27.9 Peptic ulcer, site unspecified, unspecified as acute or chronic, without hemorrhage or perforation; D64.9 Anemia, unspecified; K63.5 Polyp of colon; R10.9 Unspecified abdominal pain; E83.39 Other disorders of phosphorus metabolism; I10 Essential (primary) hypertension; E78.5 Hyperlipidemia, unspecified; Z90.49 Acquired absence of other specified parts of digestive tract; R79.9 Abnormal finding of blood chemistry, unspecified
CPT/HCPCS: 36415; 74176-TC; 76775-TC; 80048; 80053; 81003; 82272; 82570; 83690; 83735; 84100; 84156; 84300; 84484; 85025; 85027; 85610; 85730; 86850; 86900; 86901; 87040; 87045; 87046; 87086; 87324; 87449; 93005; 93010; 96361; 96365; 96366; 96372; 96375; 96376; 99285-25; G0378; J1644

== ENCOUNTER 2024-04-29 04:47 | Day surgery (SDC) | payer OTHER ==
[2024-04-21 13:57] VITALS: BMI 25.9
[2024-04-29 10:09] VITALS: TEMP 98.3
[2024-04-29 10:40] VITALS: RESP 18
[2024-04-29 10:41] VITALS: BP 135/64; PULSE 76
== END 2024-04-29 11:10 | disposition home or self-care (01) ==
LOC: JASU-ENDO 04:47
PROVIDERS: ATTEND Internal Medicine Gastroenterology
PROC: 0DJD8ZZ Inspection of Lower Intestinal Tract, Via Natural or Artificial Opening Endoscopic (ICD-10-PCS; principal; 2024-04-29 09:45)
DX: Z12.11 Encounter for screening for malignant neoplasm of colon (principal); K57.30 Diverticulosis of large intestine without perforation or abscess without bleeding; Z86.010 Personal history of colon polyps; Z98.0 Intestinal bypass and anastomosis status; K64.8 Other hemorrhoids